=== PATIENT | female | born 1980 | race Caucasian/White ===

== ENCOUNTER 2018-01-02 11:58 | Emergency (ER) | payer MEDICAID ==
--- NOTE | 2018-01-02 12:46 | ER Document Report ---
ED Medical Screen (RME) - General Chief Complaint: Dizziness Stated Complaint: DIZZY Time Seen by Provider: 01/02/18 12:41 Notes: RAPID MEDICAL EVALUATION DISCLOSURE I have seen this patient as part of a Rapid Medical Evaluation and, if applicable, placed any initially appropriate orders. The patient will be seen and fully evaluated, including a full history and physical exam, by a provider ( in Main ED or Fast Track) when a room becomes available. 37-year-old female here with complaints of lightheadedness that started earlier today. She was sitting down in class when the symptoms started. She felt like she was going to pass out. She has not tried anything for the symptoms. She did not have any nausea vomiting diarrhea cough congestion runny nose sore throat shortness of breath chest pain. She did have some lightheadedness when she was but usually does not have any lightheadedness. EXAM CTAB RRR TRAVEL OUTSIDE OF THE [place] IN LAST 30 DAYS: No - Related Data Allergies/Adverse Reactions: doxycycline [Doxycycline] Allergy (Severe, Verified 01/02/18 12:45) Anaphylaxis Past Medical History - Social History Chew tobacco use (# tins/day): No Frequency of alcohol use: None Drug Abuse: None Renal/ Medical History: Denies: Hx Peritoneal Dialysis Skin Medical History: Reports Hx Psoriasis Psychiatric Medical History: Reports: Hx Anxiety Past Surgical History: Reports: Hx Gynecologic Surgery - Elective - Immunizations Hx Diphtheria, Pertussis, Tetanus Vaccination: Yes - within last 5 years Physical Exam - Vital signs Vitals: Temp Pulse Resp BP Pulse Ox 99.4 F 69 16 109/64 99 01/02/18 12:11 01/02/18 12:11 01/02/18 12:11 01/02/18 12:11 01/02/18 12:11 Course - Vital Signs Vital signs: Temp Pulse Resp BP Pulse Ox 99.4 F 69 16 109/64 99 01/02/18 12:11 01/02/18 12:11 01/02/18 12:11 01/02/18 12:11 01/02/18 12:11 Doctor's Discharge - Discharge Referrals: DARNELL JAY MD [Primary Care Provider] - Follow up as needed
[2018-01-02 13:12] LABS: ABSOLUTE EOSINOPHILS # (AUTO) 0.1 10^3/uL (0.0-0.6); ABSOLUTE LYMPHOCYTES (AUTO) 1.9 10^3/uL (0.5-4.7); ABSOLUTE MONOCYTES (AUTO) 0.4 10^3/uL (0.1-1.4); ABSOLUTE NEUT (AUTO) 3.3 10^3/uL (1.7-8.2); BASOPHILS % (AUTO) 0.6 % (0-2); EOSINOPHILS % (AUTO) 1.7 % (0-6); HEMATOCRIT 39.5 % (36.0-47.0); HEMOGLOBIN 13.5 g/dL (12.0-15.5); LYMPHOCYTES % (AUTO) 33.4 % (13-45); MEAN CORPUSCULAR VOLUME 88 fl (80-97); MONOCYTES % (AUTO) 6.3 % (3-13); PLATELET COUNT 184 10^3/uL (150-450); RED BLOOD COUNT 4.48 10^6/uL (3.72-5.28); RED CELL DISTRIBUTION WIDTH 14.5 % (11.5-14.0); TOTAL CELLS COUNTED % (AUTO) 100 %; WHITE BLOOD COUNT 5.7 10^3/uL (4.0-10.5)
[2018-01-02 13:34] LABS: APPEARANCE,URINE SLIGHTLY-CLOUDY; BILIRUBIN,URINE NEGATIVE (NEGATIVE); COLOR,URINE YELLOW; GLUCOSE, URINE NEGATIVE (NEGATIVE); KETONES,URINE NEGATIVE (NEGATIVE); LEUKOCYTE ESTERASE,URINE NEGATIVE (NEGATIVE); NITRITE,URINE NEGATIVE (NEGATIVE); PROTEIN,URINE NEGATIVE (NEGATIVE); URINE SPECIFIC GRAVITY 1.032
[2018-01-02 13:41] LABS: ALANINE AMINOTRANSFERASE 21 U/L (9-52); ALBUMIN 4.1 g/dL (3.5-5.0); ALKALINE PHOSPHATASE 38 U/L (38-126); ANION GAP 8 (5-19); ASPARTATE AMINO TRANSFERASE 16 U/L (14-36); BILIRUBIN,DIRECT 0.2 mg/dL (0.0-0.4); BILIRUBIN,TOTAL 0.4 mg/dL (0.2-1.3); BLOOD UREA NITROGEN 17 mg/dL (7-20); CARBON DIOXIDE 26 mmol/L (22-30); CHLORIDE 110 mmol/L (98-107); GLUCOSE 84 mg/dL (75-110); PHOSPHORUS 3.2 mg/dL (2.5-4.5); SODIUM 144.1 mmol/L (137-145); TOTAL PROTEIN 6.6 g/dL (6.3-8.2)
--- NOTE | 2018-01-02 14:24 | ER Document Report ---
ED Dizziness/Weakness - General Chief Complaint: Dizziness Stated Complaint: DIZZY Time Seen by Provider: 01/02/18 12:41 Notes: The patient is a 37-year-old female, no past medical history, presents after she fell slightly lightheaded while she was in class today. This episode was brief and quickly resolved. She had this when she was , but denies any current . She denies syncope, LOC, chest pain, shortness of breath, nausea, vomiting, palpitations, headache, abdominal pain, fevers or blurry vision. TRAVEL OUTSIDE OF THE [place] IN LAST 30 DAYS: No - Related Data Allergies/Adverse Reactions: doxycycline [Doxycycline] Allergy (Severe, Verified 01/02/18 12:45) Anaphylaxis Past Medical History - General Information source: Patient - Social History Smoking Status: Never Smoker Chew tobacco use (# tins/day): No Frequency of alcohol use: None Drug Abuse: None Family History: Reviewed & Not Pertinent Patient has suicidal ideation: No Patient has homicidal ideation: No Renal/ Medical History: Denies: Hx Peritoneal Dialysis Skin Medical History: Reports Hx Psoriasis Psychiatric Medical History: Reports: Hx Anxiety Past Surgical History: Reports: Hx Gynecologic Surgery - Elective - Immunizations Hx Diphtheria, Pertussis, Tetanus Vaccination: Yes - within last 5 years Review of Systems - Review of Systems Notes: REVIEW OF SYSTEMS: CONSTITUTIONAL: -fevers, -chills EENT: -eye pain, -difficulty swallowing, -nasal congestion CARDIOVASCULAR: -chest pain, +near syncope. RESPIRATORY: -cough, -SOB GASTROINTESTINAL: -abdominal pain, -nausea, -vomiting, -diarrhea GENITOURINARY: -dysuria, -hematuria MUSCULOSKELETAL: -back pain, -neck pain SKIN: -rash or skin lesions. HEMATOLOGIC: -easy bruising or bleeding. LYMPHATIC: -swollen, enlarged glands. NEUROLOGICAL: -altered mental status or loss of consciousness, -headache, - neurologic symptoms PSYCHIATRIC: -anxiety, -depression. ALL OTHER SYSTEMS REVIEWED AND NEGATIVE. Physical Exam - Vital signs Vitals: Temp Pulse Resp BP Pulse Ox 99.4 F 69 16 109/64 99 01/02/18 12:11 01/02/18 12:11 01/02/18 12:11 01/02/18 12:11 01/02/18 12:11 - Notes Notes: PHYSICAL EXAMINATION: GENERAL: Well-appearing, well-nourished and in no acute distress. HEAD: Atraumatic, normocephalic. EYES: Pupils equal round and reactive to light, extraocular movements intact, sclera anicteric, conjunctiva are normal. ENT: nares patent, oropharynx clear without exudates. Moist mucous membranes. NECK: Normal range of motion, supple without lymphadenopathy LUNGS: Breath sounds clear to auscultation bilaterally and equal. No wheezes rales or rhonchi. HEART: Regular rate and rhythm without murmurs ABDOMEN: Soft, nontender, normoactive bowel sounds. No guarding, no rebound. No masses appreciated. EXTREMITIES: Normal range of motion, no pitting or edema. No cyanosis. NEUROLOGICAL: Cranial nerves grossly intact. Normal speech, normal gait. Normal sensory and motor exams. PSYCH: Normal mood, normal affect. SKIN: Warm, Dry, normal turgor, no rashes or lesions noted. Course - Re-evaluation Re-evalutation: Patient appears well. Her EKG does not show any dangerous arrhythmias and no evidence of Brugada, WPW or prolonged QT syndrome. Blood work is unremarkable and she is not . Her orthostatic vital signs are normal and she is PERC negative. Suspect a vasovagal syncope with her negative workup for more dangerous causes. Instructed her to stay hydrated and follow-up with her primary care physician for further evaluation and treatment. - Vital Signs Vital signs: Temp Pulse Resp BP Pulse Ox 99.4 F 68 18 102/61 100 01/02/18 12:11 01/02/18 14:33 01/02/18 14:25 01/02/18 14:33 01/02/18 14:25 - Laboratory Result Diagrams: 01/02/18 12:56 01/02/18 12:56 Laboratory results interpreted by me: 01/02/18 01/02/18 01/02/18 12:56 12:56 12:56 RDW 14.5 H Chloride 110 H Urine Urobilinogen 2.0 H - EKG Interpretation by [place] EKG shows normal: Sinus rhythm, [place], Intervals, QRS Complexes, ST-T Waves Rate: Normal When compared to previous EKG there are: No significant change Discharge - Discharge Clinical Impression: Near syncope Condition: Stable Disposition: HOME, SELF-CARE Additional Instructions: NEAR SYNCOPAL EPISODE: Syncope or near syncope (fainting or near-fainting) can occur from many different health problems. Or it can be a simple fainting spell requiring no treatment. It is safe for you to go home, but further evaluation will likely be necessary. Your work-up may include tests for internal bleeding, heart disease, medication problems, or near-strokes. Tests are not always required, however, depending on the nature of your problem. The warning signs of an impending faint include: dizziness, lightheadedness , nausea, hot flashes, tingling, and weakness. If this happens, lay down and put your feet up, then wait until all of these symptoms have passed before standing up again. If these episodes become recurrent, or if you develop chest pain, heart palpitations, mental confusion, blurred vision, or headache, then you should call the physician, or go to the emergency room. NORMAL EXAM AND WORKUP: At this time, your examination and workup show no significant abnormality. No significant abnormal physical findings were noted. All laboratory, EKG, and imaging (x-ray, CT scans, ultrasound) studies that were ordered show no significant abnormality. Although your examination and all studies that were ordered showed no significant abnormal finding, there are no examinations and no studies that are 100% accurate. There is always the possibility that some abnormality could exist and not be detected with physical examination or within the limits and capabilities of laboratory and other studies. You should return or follow up as you were instructed on your visit today for further evaluation if your symptoms do not resolve. FOLLOW-UP CARE: If you have been referred to a physician for follow-up care, call the physician s office for an appointment as you were instructed or within the next two days. If you experience worsening or a significant change in your symptoms, notify the physician immediately or return to the Emergency Department at any time for re-evaluation. Referrals: DARNELL JAY MD [Primary Care Provider] - Follow up as needed
[2018-01-02 14:39] VITALS: BP 105/73
== END 2018-01-02 14:39 | disposition home or self-care (01) ==
LOC: ER 11:58
DX: R42 Dizziness and giddiness (principal)
CPT/HCPCS: 36415; 80053; 81001; 81025; 83735; 84100; 84443; 85025; 99284

== ENCOUNTER 2019-08-12 07:09 | Emergency (ER) | payer MEDICAID ==
[2019-08-12 09:20] LABS: APPEARANCE,URINE SLIGHTLY-CLOUDY; BILIRUBIN,URINE NEGATIVE (NEGATIVE); COLOR,URINE YELLOW; GLUCOSE, URINE NEGATIVE (NEGATIVE); KETONES,URINE NEGATIVE (NEGATIVE); LEUKOCYTE ESTERASE,URINE NEGATIVE (NEGATIVE); NITRITE,URINE NEGATIVE (NEGATIVE); PROTEIN,URINE NEGATIVE (NEGATIVE); URINE SPECIFIC GRAVITY 1.024; UROBILINOGEN,URINE NEGATIVE mg/dL (<2.0)
[2019-08-12 09:47] LABS: ABSOLUTE EOSINOPHILS # (AUTO) 0.1 10^3/uL (0.0-0.6); ABSOLUTE LYMPHOCYTES (AUTO) 1.9 10^3/uL (0.5-4.7); ABSOLUTE MONOCYTES (AUTO) 0.3 10^3/uL (0.1-1.4); ABSOLUTE NEUT (AUTO) 4.3 10^3/uL (1.7-8.2); BASOPHILS % (AUTO) 0.5 % (0-2); EOSINOPHILS % (AUTO) 1.3 % (0-6); HEMATOCRIT 40.1 % (36.0-47.0); HEMOGLOBIN 13.5 g/dL (12.0-15.5); MEAN CORPUSCULAR HEMOGLOBIN 30.3 pg (27.0-33.4); MEAN CORPUSCULAR HGB CONC 33.6 g/dL (32.0-36.0); MEAN CORPUSCULAR VOLUME 90 fl (80-97); MONOCYTES % (AUTO) 4.5 % (3-13); PLATELET COUNT 210 10^3/uL (150-450); RED BLOOD COUNT 4.45 10^6/uL (3.72-5.28); RED CELL DISTRIBUTION WIDTH 14.2 % (11.5-14.0); SEGMENTED NEUTROPHILS % (AUTO) 64.7 % (42-78); TOTAL CELLS COUNTED % (AUTO) 100 %; WHITE BLOOD COUNT 6.7 10^3/uL (4.0-10.5)
[2019-08-12 09:55] LABS: ALBUMIN 4.1 g/dL (3.5-5.0); ALKALINE PHOSPHATASE 48 U/L (38-126); ANION GAP 5 (5-19); ASPARTATE AMINO TRANSFERASE 19 U/L (14-36); BILIRUBIN,TOTAL 0.2 mg/dL (0.2-1.3); BLOOD UREA NITROGEN 19 mg/dL (7-20); CALCIUM 9.6 mg/dL (8.4-10.2); CARBON DIOXIDE 24 mmol/L (22-30); CHLORIDE 111 mmol/L (98-107); GLUCOSE 89 mg/dL (75-110); POTASSIUM 4.3 mmol/L (3.6-5.0); TOTAL PROTEIN 6.8 g/dL (6.3-8.2)
--- NOTE | 2019-08-12 09:56 | ER Document Report ---
ED General - General Chief Complaint: Flank Pain Stated Complaint: ABDOMINAL PAIN Time Seen by Provider: 08/12/19 07:41 Mode of Arrival: Ambulatory Information source: Patient Notes: 38-year-old woman presents to the emergency department with a one-month history of pain in her right side. She states that the pain has been constant and associated with movement and stretching. She does not recall an injury or activity that may have exacerbated the pain. She denies nausea, vomiting, or GI changes or change in appetite. There is no change in the symptoms based upon eating or rest. She saw her doctor for evaluation thinking she had a urinary tract infection, the urine was negative and there was no explanation for the discomfort. She presents to the emergency department for evaluation since the pain has not resolved. TRAVEL OUTSIDE OF THE [place] IN LAST 30 DAYS: No - Related Data Allergies/Adverse Reactions: doxycycline [Doxycycline] Allergy (Severe, Verified 01/02/18 12:45) Anaphylaxis Past Medical History - Social History Smoking Status: Never Smoker Family History: Reviewed & Not Pertinent Patient has suicidal ideation: No Patient has homicidal ideation: No Renal/ Medical History: Denies: Hx Peritoneal Dialysis Skin Medical History: Reports Hx Psoriasis Psychiatric Medical History: Reports: Hx Anxiety Past Surgical History: Reports: Hx Gynecologic Surgery - Elective - Immunizations Hx Diphtheria, Pertussis, Tetanus Vaccination: Yes - within last 5 years Review of Systems - Review of Systems Notes: Constitutional: Negative for fever. HENT: Negative for sore throat. Eyes: Negative for visual changes. Cardiovascular: Negative for chest pain. Respiratory: Negative for shortness of breath. Gastrointestinal: + Right lateral abdominal pain, + right flank pain Genitourinary: Negative for dysuria. Musculoskeletal: Negative for back pain. Skin: Negative for rash. Neurological: Negative for headaches, weakness or numbness. 10 point ROS negative except as marked above and in HPI. Physical Exam - Vital signs Vitals: Temp Pulse Resp BP Pulse Ox 97.6 F 74 18 112/59 L 99 08/12/19 07:17 08/12/19 07:17 08/12/19 07:17 08/12/19 07:17 08/12/19 07:17 - Notes Notes: PHYSICAL EXAMINATION: Physical Exam: General: Well-nourished well-developed 38-year-old woman in no acute distress HEENT: NC/AT, pupils equal round and reactive to light, MM moist,nares clear, Neck: supple, no adenopathy, no masses. Lungs: clear, no wheezing, no rales no rhonchi CVS: Regular rate and rhythm no murmur gallop or rub Abdomen: Soft active nontender, no masses, no hepatosplenomegaly Back: Tenderness right lateral flank region extending onto the lateral margin of the abdominal rectus and latissimus muscle. + Tenderness with rotating the torso and extending the back. Ext: No edema clubbing or cyanosis. Neuro: Alert and responsive, moving all 4 extremities on command, cranial nerves intact. Skin: Intact no open lesions, no rash PSYCH: Normal mood, normal affect. Course - Vital Signs Vital signs: Temp Pulse Resp BP Pulse Ox 97.6 F 74 18 112/59 L 99 08/12/19 07:17 08/12/19 07:17 08/12/19 07:17 08/12/19 07:17 08/12/19 07:17 - Laboratory Result Diagrams: 08/12/19 09:18 08/12/19 09:18 Laboratory results interpreted by me: 08/12/19 08/12/19 08/12/19 08:15 09:18 09:18 RDW 14.2 H Chloride 111 H Urine Blood LARGE H - Diagnostic Test Radiology reviewed: Image reviewed, Reports reviewed - CT of the abdomen and pelvis: No abnormalities noted, normal internal organ systems. Discharge - Discharge Clinical Impression: Right flank pain Condition: Good Disposition: HOME, SELF-CARE Additional Instructions: You are diagnosed with right-sided flank/abdominal pain which appears to be musculoskeletal in etiology. Suggest using topical Biofreeze or anti- inflammatory medication. Please follow-up with your doctor as needed if the symptoms are worsening or you have other concerns you may return to the emergency department. Forms: Return to School
--- NOTE | 2019-08-12 11:00 | RADIOLOGY REPORT (SQ) ---
EXAM DESCRIPTION: CT ABD/PELVIS NO ORAL OR IV COMPLETED DATE/TIME: 08/12/2019 10:31 am REASON FOR STUDY: Right flank pain COMPARISON: None. TECHNIQUE: CT scan of the abdomen and pelvis performed without intravenous or oral contrast. Images reviewed with lung, soft tissue, and bone windows. Reconstructed coronal and sagittal MPR images revi ewed. All images stored on PACS. All CT scanners at this facility use dose modulation, iterative reconstruction, and/or weight based d osing when appropriate to reduce radiation dose to as low as reasonably achievable (ALARA). [facility]: Dose Right [facility]: CareDose [facility]: Dose Right [facility]: Teradose 4D [facility]: Smart Souqalmal RADIATION DOSE: CT Rad equipment meets quality standard of care and radiation dose reduction techniq ues were employed. CTDIvol: 8.8 mGy. DLP: 459 mGy-cm.mGy. LIMITATIONS: None. FINDINGS: LOWER CHEST: No significant findings. No nodules or infiltrates. NON-CONTRASTED LIVER, SPLEEN, ADRENALS: Evaluation limited by lack of IV contrast. No identified sign ificant masses. PANCREAS: No masses. No peripancreatic inflammatory changes. GALLBLADDER: No identified stones by CT criteria. No inflammatory changes to suggest cholecystitis. RIGHT KIDNEY AND URETER: No suspicious masses. Assessment limited by lack of IV contrast. No signif icant calcifications. No hydronephrosis or hydroureter. LEFT KIDNEY AND URETER: No suspicious masses. Assessment limited by lack of IV contrast. No signifi cant calcifications. No hydronephrosis or hydroureter. AORTA AND RETROPERITONEUM: No aneurysm. No retroperitoneal masses or adenopathy. BOWEL AND PERITONEAL CAVITY: No obvious masses or inflammatory changes. No free fluid. APPENDIX: Normal. PELVIS, BLADDER, AND ABDOMINAL WALL:No abnormal masses. No free fluid. Bladder normal. BONES: No significant findings. OTHER: No other significant finding. IMPRESSION: NO SIGNIFICANT OR ACUTE PROCESS IN THE ABDOMEN OR PELVIS. COMMENT: Quality ID # [id number]: Final reports with documentation of one or more dose reduction techniques (e.g., Automated exposure control, adjustment of the mA and/or kV according to patient size, use of iterative reconstruction technique) TECHNICAL DOCUMENTATION: JOB ID: [id number] 2010 [employer]- All Rights Reserved Reading location - IP/workstation name: [email or web address]
[2019-08-12 12:44] VITALS: BP 119/66
== END 2019-08-12 12:50 | disposition home or self-care (01) ==
LOC: ER 07:09
DX: R10.9 Unspecified abdominal pain (principal)
CPT/HCPCS: 36415; 74176; 80053; 81001; 83690; 84702; 85025; 99284

== ENCOUNTER → 2020-05-08 | Outpatient (CLI) | payer MEDICAID ==
--- NOTE | 2020-05-08 12:26 | RADIOLOGY REPORT (SQ) ---
EXAM DESCRIPTION: U/S ABDOMEN LIMITED W/O DOP IMAGES COMPLETED DATE/TIME: 05/08/2020 10:23 am REASON FOR STUDY: RUQ ABDOMINAL PAIN R10.11 RIGHT UPPER QUADRANT PAIN COMPARISON: None. TECHNIQUE: Dynamic and static grayscale images acquired of the abdomen and recorded on PACS. Additio nal selected color Doppler and spectral images recorded. LIMITATIONS: None. FINDINGS: PANCREAS: No masses. Visualized pancreatic duct normal caliber. LIVER: No masses. Increased echogenicity. LIVER VASCULATURE: Normal directional flow of the main portal vein and hepatic veins. GALLBLADDER: No stones. Normal wall thickness. No pericholecystic fluid. ULTRASOUND-DETECTED HULL'S SIGN: Negative. INTRAHEPATIC DUCTS AND COMMON DUCT: CBD and intrahepatic ducts normal caliber. No filling defects. AORTA: No aneurysm. RIGHT KIDNEY: Normal size, 9.8 cm. Normal echogenicity. There appears to be a small parapelvic cyst . No solid or suspicious masses. No hydronephrosis. No calcifications. PERITONEAL AND RIGHT PLEURAL SPACE: No ascites or effusions. OTHER: No other significant findings. IMPRESSION: Hepatic steatosis. TECHNICAL DOCUMENTATION: JOB ID: [id number] 2010 [employer]- All Rights Reserved Reading location - IP/workstation name: [email or web address]
--- NOTE | 2020-05-08 13:14 | RADIOLOGY REPORT (SQ) ---
EXAM DESCRIPTION: NM HIDA SCAN WITH CCK IMAGES COMPLETED DATE/TIME: 05/08/2020 12:40 pm REASON FOR STUDY: RUQ PAIN R10.11 RIGHT UPPER QUADRANT PAIN COMPARISON: None. RADIONUCLIDE AND DOSE: DOSAGE RADIONUCLIDE: 5 millicuries Tc99m Mebrofenin. DOSAGE CCK: 1.6 micrograms. DOSAGE MORPHINE: Not required. The route of agent administration: Intravenous TECHNIQUE: Serial imaging right upper quadrant up to 60 minutes following injection of radionuclide. CCK injected after gallbladder visualized. LIMITATIONS: None. FINDINGS: LIVER: Normal visualization without areas of photopenia. INTRAHEPATIC BILE DUCTS: Normal size and no delay in visualization. COMMON BILE DUCT: Normal without dilatation. GALLBLADDER: Normal visualization. Calculated ejection fraction of 28%. Normal range is greater th an 35%. PHYSICAL RESPONSE: Patients presenting complaint was not reproduced. OTHER: No other significant finding. IMPRESSION: Mild biliary dyskinesis with an ejection fraction of 28% where 35% or greater is conside red normal. Patient's symptoms were not reproduced with CCK administration. TECHNICAL DOCUMENTATION: JOB ID: [id number] 2010 [employer]- All Rights Reserved Reading location - IP/workstation name: [email or web address]
--- OUTSIDE RECORDS SUMMARY | 2020-05-09 15:29 | XMS REPORT ---
:1980 Author Organization [facility] Address [facility] [address] [place] [address] Care Team Providers Name Role Phone Asael Attending Clinician Unavailable Ok Canseco Attending Clinician Unavailable Robby Attending Clinician Unavailable Harmony Attending Clinician Unavailable Robby Attending Clinician Unavailable Candido Attending Clinician Unavailable Allergies, Adverse Reactions, Alerts Allergy Name Allergy Status Severity Reaction(s) Onset Inactive Treat ing Comments Type Date Date Clinician DOXYCYCLINE Drug Active MO Anaphylaxis 2016-10 allergy -18 00:00:0 0 Medications This patient has no known medications. Problems This patient has no known problems. Procedures Procedure Date / Time Performed Performing Clinician Devic e OFFICE/OUTPATIENT VISIT EST 2020-04-18 09:15:00 PREV VISIT EST AGE 18-39 2019-05-09 11:00:00 OFFICE/OUTPATIENT VISIT EST 2019-04-18 08:45:00 OFFICE/OUTPATIENT VISIT EST 2018-10-30 15:45:00 OFFICE/OUTPATIENT VISIT EST 2018-03-31 13:00:00 OFFICE/OUTPATIENT VISIT EST 2017-06-02 13:30:00 Results Test Description Test Time Test Comments Text Results Atomic Results Result Comments CULTURE, URINE, ROUTINE 2020-04-19 22:41:00 Test Item Value Reference Range Comments SOURCE: (test code = 70523-0) URINE, CLEAN CATCH STATUS: (test code = 8251-1) FINAL RESULT: (test code = 630-4) No G rowth CULTURE, URINE, [id number] 10:32:00SEE NOTECBC (H/H, RBC, INDICES, WBC, PLT)2019-05-09 11:49:00 Test Item Value Reference Range Comments RDW (test code = 19277311) 13.1 % 11.0-15.0 HEMOGLOBIN (test code = 51698338) 13.0 g/dL 11.7-15.5 PLATELET COUNT (test code = 35770128) 222 Thousand/uL 140-400 WHITE BLOOD CELL COUNT (test code = 5.9 Thousand/uL 3.8-10.8 64868449) MCH (test code = 36645967) 30.3 pg 27.0-33.0 MCHC (test code = 15955743) 33.8 g/dL 32.0-36.0 MPV (test code = 55379970) 11.1 fL 7.5-12.5 RED BLOOD CELL COUNT (test code = 51519589) 4.29 Million/uL 3.80 -5.10 MCV (test code = 66477285) 89.7 fL 80.0-100.0 HEMATOCRIT (test code = 07295963) 38.5 % 35.0-45.0 CULTURE, URINE, [id number] 11:49:00SEE NOTELIPID PANEL, STANDARD 2019-05-09 11:49:00 Test Item Value Reference Range Comments TRIGLYCERIDES (test code = 59001044) 136 mg/dL <150 CHOLESTEROL, TOTAL (test code = 29869750) 131 mg/dL <200 NON HDL CHOLESTEROL (test code = 37374484) 82 mg/dL (calc) <130 LDL-CHOLESTEROL (test code = 88225600) 60 mg/dL (calc) HDL CHOLESTEROL (test code = 82998115) 49 mg/dL >50 CHOL/HDLC RATIO (test code = 84904238) 2.7 (calc) <5.0 THINPREP TIS PAP AND HPV mRNA E6/E7, CHLAMYDIA/N.[id number] 11:45:00 Test Item Value Reference Range Comments NEISSERIA GONORRHOEAE RNA, TMA, UROGENITAL NOT DETECTED NOT D ETECTED (test code = 91952842) HPV mRNA E6/E7 (test code = 94209-6) Not Detected Not Detecte d CHLAMYDIA TRACHOMATIS RNA, TMA, UROGENITAL NOT DETECTED NOT D ETECTED (test code = 35931448) CULTURE, URINE, [id number] 16:20:00SEE NOTEHEPATIC FUNCTION PANEL 2018-03-31 13:42:00 Test Item Value Reference Range Comments ALKALINE PHOSPHATASE (test code = 88764823) 41 U/L 33-1 15 PROTEIN, TOTAL (test code = 52150267) 6.2 g/dL 6.1-8.1 ALBUMIN/GLOBULIN RATIO (test code = 1.8 (calc) 1.0-2.5 68567281) ALT (test code = 88219331) 8 U/L 6-29 BILIRUBIN, INDIRECT (test code = 30073117) 0.2 mg/dL (calc) 0.2- 1.2 AST (test code = 74871914) 12 U/L 10-30 BILIRUBIN, DIRECT (test code = 10276863) 0.1 mg/dL < OR = 0.2 GLOBULIN (test code = 27555418) 2.2 g/dL (calc) 1.9-3.7 ALBUMIN (test code = 64544592) 4.0 g/dL 3.6-5.1 BILIRUBIN, TOTAL (test code = 59872449) 0.3 mg/dL 0.2-1.2 [id number] 13:42:001.03COMPREHENSIVE METABOLIC [id number] 13:42:00 Test Item Value Reference Range Comments ALT (test code = 90837990) 8 U/L 6-29 ALBUMIN (test code = 53771910) 4.0 g/dL 3.6-5.1 PROTEIN, TOTAL (test code = 39461518) 6.2 g/dL 6.1-8.1 CREATININE (test code = 09620470) 0.70 mg/dL 0.50-1.10 CHLORIDE (test code = 82055991) 109 mmol/L 98-110 ALKALINE PHOSPHATASE (test code = 41 U/L 33-115 80571495) GLUCOSE (test code = 85750048) 102 mg/dL 65-99 SODIUM (test code = 90107959) 142 mmol/L 135-146 CALCIUM (test code = 10426132) 9.2 mg/dL 8.6-10.2 CARBON DIOXIDE (test code = 98431209) 26 mmol/L 20-32 BILIRUBIN, TOTAL (test code = 0.3 mg/dL 0.2-1.2 36842665) eGFR (test code = 129 mL/min/1.73m2 > OR = 60 72037019) GLOBULIN (test code = 91661495) 2.2 g/dL (calc) 1.9-3.7 BUN/CREATININE RATIO (test code = NOT APPLICABLE (calc) 6-22 01810283) POTASSIUM (test code = 64650869) 3.8 mmol/L 3.5-5.3 AST (test code = 35369720) 12 U/L 10-30 ALBUMIN/GLOBULIN RATIO (test code = 1.8 (calc) 1.0-2.5 70686958) eGFR NON-AFR. NORWEGIAN (test code = 111 mL/min/1.73m2 > OR = 60 62725374) UREA NITROGEN (BUN) (test code = 20 mg/dL 7-25 ) BV/VAGINITIS PANEL DNA [id number] 13:42:00SEE NOTECHLAMYDIA/N. GONORRHOEAE RNA, [id number] 11:14:00 Test Item Value Reference Range Comments CHLAMYDIA TRACHOMATIS RNA, TMA (test code = NOT DETECTED NOT DETECTED 43793625) NEISSERIA GONORRHOEAE RNA, TMA (test code = NOT DETECTED NOT DETECTED 13532458) BV/VAGINITIS PANEL DNA [id number] 11:14:00SEE NOTEANA screen, IFA w/rfx Titer/[id number] 14:13:00 Test Item Value Reference Range Comments Anti Nuclear Antibody (test code = 073869) NEG NEGAT ANAYA Complement Component [id number] 14:13:00 Test Item Value Reference Range Comments Complement C3 (test code = 409911) 111 mg/dL 90-180 Rheumatoid [id number] 14:13:00 Test Item Value Reference Range Comments Rheumatoid Factor (test code = 323690) <14 IU/mL <14 Cyclic Citrul Peptide (CCP) Ab [id number] 14:13:00 Test Item Value Reference Range Comments CCP Ab IgG (test code = 367693) <16 Units Actin (Smooth Muscle) Ab (IgG)2017-06-02 14:13:00 Test Item Value Reference Range Comments Actin (Smooth Muscle) Ab (IgG) (test code = 059396) <20 U <20 Complement Component [id number] 14:13:00 Test Item Value Reference Range Comments Complement C4 (test code = 263406) 33 mg/dL 16-47 C-Reactive Protein (CRP)2017-06-02 14:13:00 Test Item Value Reference Range Comments C-Reactive Protein (test code = 152590) 0.6 mg/L <8.0 Mitochondria M2 Ab (IgG), [id number] 14:13:00 Test Item Value Reference Range Comments Mitochondria M2 Ab (IgG), EIA (test code = <=20.0 Units <=20. 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) w/o Active abn findings Encntr for general adult medical exam w/o Active abnormal findings Unspecified abdominal pain Active Frequency of micturition Active Stress incontinence (female) (male) Active Overweight Active Encounter for health counseling related to Active travel Body mass index (BMI) 28.0-28.9, adult Active Dysuria Active Acute maxillary sinusitis, unspecified Active Psoriasis, unspecified Active Other specified counseling Active Other specified noninflammatory disorders of Active vagina Overweight Active Tinnitus, bilateral Active Body mass index (BMI) 29.0-29.9, adult Active Pain in left knee Active Pain in right hand Active Pain in unspecified joint Active Psoriasis, unspecified Active Encounters Start End Encounter Admission Attending Care Care Encounter Date/Time Date/Time Type Type Clinicians Facility Department ID 2020-04-18 2020-04-18 Outpatient Asael [facility] F [id number] 09:15:00 09:15:00 [facility] [phone] B-B and [id number] [facility] [id number] Clini 2019-05-09 2019-05-09 Outpatient Ok [facility] [id number] 11:00:00 11:00:00 [facility] [id number] Dawit s [id number] and [id number] [facility], 2019-04-18 2019-04-18 Outpatient Robby [facility] F [id number] 08:45:00 08:45:00 Stormy [facility] [id number] s [id number] and [id number] [facility], 2018-10-30 2018-10-30 Outpatient Harmony, [facility] B1 [id number] 15:45:00 15:45:00 Reyna Alvarez [id number] s [id number] and [id number] [facility], 2018-03-31 2018-03-31 Outpatient Robby, [facility] 2 [id number] 13:00:00 13:00:00 [facility] [id number] s [id number] and [id number] [facility] 2017-06-02 2017-06-02 Outpatient Candido, [facility] F3 [id number] 13:30:00 13:30:00 Bridget Children [id number] s [id number] and [id number] [facility] [place] Social History This patient has no known social history. Vital Signs This patient has no known vital signs.
== END ==
LOC: RAD 12:55
PROVIDERS: ATTEND Nurse Practitioner Family
DX: R10.11 Right upper quadrant pain (principal); K82.8 Other specified diseases of gallbladder; K76.0 Fatty (change of) liver, not elsewhere classified
CPT/HCPCS: 76705; 78227; J2805; A9537; Q9969